=== PATIENT | female | born 1975 | race Caucasian/White ===

== ENCOUNTER 2016-05-18 12:09 | Emergency (ER) | payer MEDICAID ==
[2016-05-18 12:15] VITALS: BP 124/75
--- NOTE | 2016-05-18 12:30 | EDM.PDOC ---
ED HPI GENERAL MEDICAL PROBLEM - General Chief Complaint: Back Pain or Injury Stated Complaint: BACK PAIN Time Seen by Provider: 05/18/16 12:11 - History of Present Illness INITIAL COMMENTS - FREE TEXT/NARRATIVE: HISTORY AND PHYSICAL: History of present illness: The patient is a 40-year-old female who presents with complaints of lower back pain that has been ongoing for the last 3 days. She describes it as a warm deep aching sensation that is bilateral and does not radiate to her buttock or legs. She's had no bowel or bladder disturbances and has had no recent trauma or falls. Patient states she has had UTIs before and this pain is somewhat different but she's concerned about that as well. She has no kidney stone history in that no fevers chills dysuria frequency or urgency and no hematuria. She has no flank pain or abdominal pain. She says the lower back pain does radiate around to her anterior groin area but not down her legs. Patient follows at [facility] and was unable to get an appointment so she came here. She has tried Percocet at home and one other narcotic that she had left over from her surgery she said it was not helping. Patient has a history of a tubal ligation The patient states the pain in his lower back area does not shoot down her legs or to the groin area and she has no neurosensory changes or weakness in her legs Review of systems: As per history of present illness and below otherwise all systems reviewed and negative. Past medical history: As per history of present illness and as reviewed below otherwise noncontributory. Surgical history: As per history of present illness and as reviewed below otherwise noncontributory. Social history: No reported history of drug or alcohol abuse. Family history: As per history of present illness and as reviewed below otherwise noncontributory. Physical exam: General: Well-developed overweight female who is nontoxic and sitting with her legs pulled up and leaning sideways without any discomfort in the ED. She ambulated in and move around without any discomfort. HEENT: Atraumatic, normocephalic, , negative for conjunctival pallor or scleral icterus, mucous membranes moist, throat clear, neck supple, nontender, trachea midline. Lungs: Clear to auscultation, breath sounds equal bilaterally, chest nontender. Heart: S1S2, regular rate and rhythm no overt murmur. Abdomen: Soft, nondistended, nontender. NABS Negative for costovertebral tenderness. Pelvis: Stable nontender. Genitourinary: Deferred. Rectal: Deferred. Extremities: Atraumatic, negative for cords or calf pain. Neurovascular unremarkable. Neuro: Awake, alert, oriented. Cranial nerves II through XII unremarkable. Cerebellum unremarkable. Motor and sensory unremarkable throughout. Exam nonfocal. Patellar reflexes are +2/4 bilaterally, dorsiflexion plantar flexion are intact bilaterally 5/5 inclusive of the great toe. Inversion and eversion of the feet are intact bilaterally. Gait was normal Back: There are no midline step-offs tenderness defects of the thoracic or lumbar spine and no discrete SI joint tenderness or posterior pelvis tenderness. There is soft tissue tenderness at palpation bilaterally at the lower lumbar area but there is no discomfort at palpation of the buttocks. Diagnostics: UA Therapeutics: Precious I did discuss with patient that the pain persists she may need to have further imaging that we can perform here with x-rays would not be useful have a very low he'll that she has not had any recent trauma. Advise we are treating with anti-inflammatories and muscle relaxers and she would need followup with her provider at [facility] I did discuss with the patient the cold blood that was in the urine but that there is no signs of UTI. I offered the patient kidney stone workup but as her pain is bilateral she would like to defer try muscle relaxers and followup with her provider at [facility] for repeat UA and if that is positive to pursue it. Impression: Lower back pain Definitive disposition and diagnosis as appropriate pending reevaluation and review of above. Bilateral Lower Back Pain Score (Numeric/FACES): 7 - Related Data Allergies Allergy/AdvReac Type Severity Reaction Status Date / Time morphine Allergy Headache Verified 05/18/16 12:12 Sulfa (Sulfonamide Allergy Itching Verified 05/18/16 12:12 Antibiotics) Home Meds: Home Meds Fluticasone/Vilanterol [Breo Ellipta 200-25 Mcg INH] 1 inhalation INH DAILY [History] Modafinil [Provigil] 200 mg PO DAILY 09/13/15 [History] Albuterol [Ventolin HFA] 1 - 2 puff INH ASDIRECTED PRN 03/12/16 [History] Cholecalciferol (Vitamin D3) [Vitamin D3] 1 cap PO ASDIRECTED 03/12/16 [History] Lansoprazole/Amoxiciln/Clarith [Wznqtnanbrz-Iiylvrgz-Dcggpzrdj] 1 each PO ASDIRECTED #1 combo..pkg 03/20/16 [Rx] oxyCODONE HCl/Acetaminophen [Percocet 5-325 mg Tablet] 2 each PO Q4H PRN #60 tablet 03/20/16 [Rx] Past Medical History HEENT History: Reports: Sinusitis Cardiovascular History: Reports: None Respiratory History: Reports: Asthma, Other (see below) Other Respiratory History: Hx of PNEUMONIA, BRONCHITIS Gastrointestinal History: Reports: Cholelithiasis Genitourinary History: Reports: None 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 History: Reports: Musculoskeletal History: Reports: None Neurological History: Reports: None Psychiatric History: Reports: Anxiety, Depression Endocrine/Metabolic History: Reports: Obesity/BMI 30+ Hematologic History: Reports: None Dermatologic History: Reports: None - Infectious Disease History Infectious Disease History: Reports: Chicken pox - Past Surgical History Head Surgeries/Procedures: Reports: None HEENT Surgical History: Reports: Adenoidectomy, Tonsillectomy GI Surgical History: Reports: Appendectomy, Cholecystectomy Female Surgical History: Reports: Endometrial ablation, Tubal ligation Other Female Surgeries/Procedures: hx bladder surgery for stress incontinence Social & Family History - Family History Family Medical History: Noncontributory - Tobacco Use Smoking Status *Q: Never Smoker Second Hand Smoke Exposure: No - Caffeine Use Caffeine Use: Reports: None - Alcohol Use Days Per Week of Alcohol Use: 0 - Recreational Drug Use Recreational Drug Use: No ED ROS GENERAL - Review of Systems Review Of Systems: ROS reveals no pertinent complaints other than HPI. ED EXAM, GENERAL - Physical Exam Exam: See Below (See dictation) Course - Vital Signs Last Recorded V/S: Last Vital Signs Temp 36.6 C 05/18/16 12:12 Pulse 101 H 05/18/16 12:12 Resp 16 05/18/16 12:12 BP 124/75 05/18/16 12:12 Pulse Ox 99 05/18/16 12:12 - Orders/Labs/Meds Labs: Laboratory Tests 05/18/16 Range/Units 12:20 Urine Color YELLOW Urine Appearance CLEAR Urine pH 6.0 (5.0-8.0) Ur Specific [place] >= 1.030 (1.001-1.035) Urine Protein NEGATIVE (NEGATIVE) mg/dL Urine Glucose (UA) NEGATIVE (NEGATIVE) mg/dL Urine Ketones NEGATIVE (NEGATIVE) mg/dL Urine Occult Blood LARGE H (NEGATIVE) Urine Nitrite NEGATIVE (NEGATIVE) Urine Bilirubin NEGATIVE (NEGATIVE) Urine Urobilinogen 0.2 (<2.0) EU/dL Ur Leukocyte Esterase NEGATIVE (NEGATIVE) Urine RBC 1-2 (0-2/HPF) Urine WBC 0-2 (0-5/HPF) Ur Epithelial Cells FEW (NONE-FEW) Urine Bacteria FEW (NEGATIVE) Urine Mucus LIGHT (NONE-MOD) Meds: Medications Discontinued Medications Generic Name Dose Route Start Last Admin Trade Name Freq PRN Reason Stop Dose Admin Orphenadrine Citrate 60 mg 05/18/16 12:29 05/18/16 12:35 Norflex IM 05/18/16 12:30 60 mg ONETIME ONE Administration Departure - Departure Time of Disposition: 12:55 Disposition: Home, Self-Care 01 Condition: good Clinical Impression: Lower back pain Qualifiers: Chronicity: acute Back pain laterality: bilateral Sciatica presence: without sciatica Qualified Code(s): M54.5 - Low back pain Forms: ED Department Discharge Additional Instructions: The following information is given to patients seen in the emergency department who are being discharged to home. This information is to outline your options for follow-up care. We provide all patients seen in our emergency department with a follow-up referral. The need for follow-up, as well as the timing and circumstances, are variable depending upon the specifics of your emergency department visit. If you don't have a primary care physician on staff, we will provide you with a referral. We always advise you to contact your personal physician following an emergency department visit to inform them of the circumstance of the visit and for follow-up with them and/or the need for any referrals to a consulting specialist. The emergency department will also refer you to a specialist when appropriate. This referral assures that you have the opportunity for followup care with a specialist. All of these measure are taken in an effort to provide you with optimal care, which includes your followup. Under all circumstances we always encourage you to contact your private physician who remains a resource for coordinating your care. When calling for followup care, please make the office aware that this follow-up is from your recent emergency room visit. If for any reason you are refused follow-up, please contact the [facility] emergency department at and ask to speak to the emergency department charge nurse. [address] [place] [address] Please call and followup with your provider at [facility] and return to the ER as needed and as discussed. Apply ice or heat to the area for symptomatic relief and take medications as prescribed and needed.
== END 2016-05-18 13:08 | disposition home or self-care (01) ==
LOC: MW.ED 12:09
DX: M54.5 Low back pain (principal); J45.909 Unspecified asthma, uncomplicated; Z79.899 Other long term (current) drug therapy; Z90.49 Acquired absence of other specified parts of digestive tract; Z88.2 Allergy status to sulfonamides
CPT/HCPCS: 81001; 96372; 99283; J2360

== ENCOUNTER 2017-12-05 14:47 | Emergency (ER) | payer SELFPAY ==
[2017-12-05 15:00] VITALS: BP 132/80
--- NOTE | 2017-12-05 15:08 | EDM.PDOC ---
ED HPI GENERAL MEDICAL PROBLEM - General Chief Complaint: Respiratory Problem Stated Complaint: COLD Time Seen by Provider: 12/05/17 15:08 Source of Information: Reports: Patient History Limitations: Reports: No Limitations - History of Present Illness INITIAL COMMENTS - FREE TEXT/NARRATIVE: HISTORY AND PHYSICAL: History of present illness: Patient is a 41-year-old female her with complaint of headache and sinus pressure. She states she has had nasal congestion and not feeling well for the past week. She reports worsening pain in her sinuses today prompting her to come to the ED. She denies any fevers, chills, nausea, vomiting, abdominal pain. She states she feels like it's hard to breath but believes it is due to her nose being plugged. She denies any chest pain, shortness of breath, wheezing. Review of systems: As per history of present illness and below otherwise all systems reviewed and negative. Past medical history: As per history of present illness and as reviewed below otherwise noncontributory. Surgical history: As per history of present illness and as reviewed below otherwise noncontributory. Social history: No reported history of drug or alcohol abuse. Family history: As per history of present illness and as reviewed below otherwise noncontributory. Physical exam: General: Patient sitting comfortably in no acute distress and nontoxic appearing HEENT: Tender to palpation of maxillary and frontal sinuses. Atraumatic, normocephalic, pupils reactive, negative for conjunctival pallor or scleral icterus, mucous membranes moist, throat clear, neck supple, nontender, trachea midline. No meningeal signs. Lungs: Clear to auscultation, breath sounds equal bilaterally, chest nontender. Heart: S1S2, regular, negative for clicks, rubs, or overt murmur. Abdomen: Soft, nondistended, nontender. Negative for masses or hepatosplenomegaly. Negative for costovertebral tenderness. Pelvis: Stable nontender. Genitourinary: Deferred. Rectal: Deferred. Extremities: Atraumatic, negative for cords or calf pain. Neurovascular unremarkable. Neuro: Awake, alert, oriented. Cranial nerves II through XII unremarkable. Cerebellum unremarkable. Motor and sensory unremarkable throughout. Exam nonfocal. Notes: Diagnostics: None Therapeutics: None Prescriptions: Augmentin Impression: Acute sinusitis Plan: 1. Take antibiotic as directed. 2. Follow up with primary care provider 3. Return to ED as needed as discussed Definitive disposition and diagnosis as appropriate pending reevaluation and review of above. headache Pain Score (Numeric/FACES): 6 - Related Data Allergies Allergy/AdvReac Type Severity Reaction Status Date / Time morphine Allergy Headache Verified 12/05/17 14:56 Sulfa (Sulfonamide Allergy Itching Verified 12/05/17 14:56 Antibiotics) Home Meds: Home Meds Fluticasone/Vilanterol [Breo Ellipta 200-25 Mcg INH] 1 inhalation INH DAILY [History] Modafinil [Provigil] 200 mg PO DAILY 09/13/15 [History] Albuterol [Ventolin HFA] 1 - 2 puff INH ASDIRECTED PRN 03/12/16 [History] Amoxicillin/Potassium Clav [Augmentin 875-125 Tablet] 1 each PO BID 7 Days #14 tablet 12/05/17 [Rx] Past Medical History HEENT History: Reports: Sinusitis Cardiovascular History: Reports: None Respiratory History: Reports: Asthma, Other (See Below) Other Respiratory History: Hx of PNEUMONIA, BRONCHITIS Gastrointestinal History: Reports: Cholelithiasis Genitourinary History: Reports: Other (See Below) Other Genitourinary History: bladder sling PROVIDER RELATIONS CONSULTANT History: Reports: Musculoskeletal History: Reports: None Neurological History: Reports: None Psychiatric History: Reports: Anxiety, Depression Endocrine/Metabolic History: Reports: Obesity/BMI 30+ Hematologic History: Reports: None Dermatologic History: Reports: None - Infectious Disease History Infectious Disease History: Reports: Chicken Pox - Past Surgical History Head Surgeries/Procedures: Reports: None HEENT Surgical History: Reports: Adenoidectomy, Tonsillectomy GI Surgical History: Reports: Appendectomy, Cholecystectomy Female Surgical History: Reports: Endometrial Ablation, Tubal Ligation Social & Family History - Family History Family Medical History: Noncontributory - Tobacco Use Smoking Status *Q: Never Smoker Second Hand Smoke Exposure: No - Caffeine Use Caffeine Use: Reports: None - Recreational Drug Use Recreational Drug Use: No ED ROS GENERAL - Review of Systems Review Of Systems: ROS reveals no pertinent complaints other than HPI. ED EXAM, GENERAL - Physical Exam Exam: See Below (see dictation) Course - Vital Signs Last Recorded V/S: Last Vital Signs Temp 36.7 C 12/05/17 14:58 Pulse 104 H 12/05/17 14:58 Resp 18 12/05/17 14:58 BP 132/80 12/05/17 14:58 Pulse Ox 97 12/05/17 14:58 Departure - Departure Time of Disposition: 15:15 Disposition: Home, Self-Care 01 Condition: Good Clinical Impression: Acute sinusitis - Discharge Information Prescriptions: Amoxicillin/Potassium Clav [Augmentin 875-125 Tablet] 1 each PO BID 7 Days #14 tablet Referrals: PCP,None [Primary Care Provider] - Forms: ED Department Discharge Additional Instructions: The following information is given to patients seen in the emergency department who are being discharged to home. This information is to outline your options for follow-up care. We provide all patients seen in our emergency department with a follow-up referral. The need for follow-up, as well as the timing and circumstances, are variable depending upon the specifics of your emergency department visit. If you don't have a primary care physician on staff, we will provide you with a referral. We always advise you to contact your personal physician following an emergency department visit to inform them of the circumstance of the visit and for follow-up with them and/or the need for any referrals to a consulting specialist. The emergency department will also refer you to a specialist when appropriate. This referral assures that you have the opportunity for follow-up care with a specialist. All of these measure are taken in an effort to provide you with optimal care, which includes your follow-up. Under all circumstances we always encourage you to contact your private physician who remains a resource for coordinating your care. When calling for follow-up care, please make the office aware that this follow-up is from your recent emergency room visit. If for any reason you are refused follow-up, please contact the [facility] Emergency Department at and asked to speak to the emergency department charge nurse. [address] [address] 1. Take antibiotic as directed. 2. Follow up with primary care provider 3. Return to ED as needed as discussed
== END 2017-12-05 18:54 | disposition home or self-care (01) ==
LOC: MW.ED 14:47
DX: J01.90 Acute sinusitis, unspecified (principal); Z79.899 Other long term (current) drug therapy; Z88.5 Allergy status to narcotic agent; Z88.2 Allergy status to sulfonamides
CPT/HCPCS: 99282; 99283

== ENCOUNTER 2020-10-10 09:58 | Day surgery (SDC) | payer MEDICAID ==
[~2020-10-10 09:58] MED LIST: Lactated Ringers 1,000 ML IV SCH; Sodium Chloride 0.9% 10 ML SDV IV PRN; Sodium Chloride 0.9% 10 ML Syringe FLUSH PRN; Sodium Chloride 0.9% 2.5 ML Syringe FLUSH PRN
--- NOTE | 2020-10-10 11:27 | PCM.PREANE ---
Preanesthetic Assessment - Procedure Proposed Procedure: Colonoscopy, Anal fistula I&D, poss fistulotomy - Anesthesia/Transfusion/Family Hx Anesthesia History: Prior Anesthesia Without Reaction Other Type of Anesthesia Reaction Comment: states it took her a long time to wake up after oral surgery Transfusion History: No Prior Transfusion(s) - Review of Systems General: No Symptoms Pulmonary: No Symptoms (Asthma, used MDI this am, lungs clear) Cardiovascular: No Symptoms (HLD) Gastrointestinal: No Symptoms Neurological: No Symptoms (febrile sz as a child, no prob since) Other: Reports: None - Physical Assessment NPO Status Date: 10/08/20 NPO Status Time: 22:00 Vital Signs: Last Vital Signs Temp 97.3 F 10/10/20 11:18 Pulse 89 10/10/20 11:18 Resp 16 10/10/20 11:18 BP 144/70 H 10/10/20 11:18 Pulse Ox 97 10/10/20 11:18 Height: 5 ft Weight: 99.79 kg (Morbid Obesity) ASA Class: 3 Airway Class: Mallampati = 2 Dentition: Reports: Normal Dentition Thyro-Mental Finger Breadths: 3 Mouth Opening Finger Breadths: 3 ROM/Head Extension: Full Lungs: Clear to Auscultation, Normal Respiratory Effort Cardiovascular: Regular Rate, Regular Rhythm - Lab Values: Laboratory Last Values Urine HCG, Qual NEGATIVE (NEGATIVE) 10/10/20 09:50 SARS-CoV-2 RNA (ZAHIDA) NEGATIVE (NEGATIVE) 10/10/20 09:50 - Allergies Allergies/Adverse Reactions: Allergies Allergy/AdvReac Type Severity Reaction Status Date / Time morphine Allergy Headache Verified 10/07/20 12:27 Sulfa (Sulfonamide Allergy Itching Verified 10/07/20 12:27 Antibiotics) bactrim Allergy Rash Uncoded 10/10/20 11:14 smoke Allergy Shortness Uncoded 10/08/20 09:52 of Breath - Anesthesia Plan Free Text/Narrative:: Plan saddle block (Spinal) and sedation - Acknowledgements Anesthesia Type Planned: Spinal, MAC Pt an Appropriate Candidate for the Planned Anesthesia: Yes Alternatives and Risks of Anesthesia Discussed w Pt/Guardian: Yes Pt/Guardian Understands and Agrees with Anesthesia Plan: Yes PreAnesthesia Questionnaire HEENT History: Reports: None Cardiovascular History: Reports: High Cholesterol Respiratory History: Reports: Asthma Other Respiratory History: Hx of PNEUMONIA, BRONCHITIS Gastrointestinal History: Reports: Irritable Bowel Syndrome Genitourinary History: Reports: None ORDNANCE ARTIFICER History: Reports: , Spontaneous Musculoskeletal History: Reports: Other (See Below) Other Musculoskeletal History: intermittent back pain Neurological History: Reports: None Psychiatric History: Reports: Anxiety, Depression, PTSD Endocrine/Metabolic History: Reports: Obesity/BMI 30+ Hematologic History: Reports: None Immunologic History: Reports: None Oncologic (Cancer) History: Reports: None Dermatologic History: Reports: None - Infectious Disease History Infectious Disease History: Reports: Chicken Pox - Past Surgical History Head Surgeries/Procedures: Reports: None HEENT Surgical History: Reports: Adenoidectomy, Naso-Sinus Surgery, Oral Surgery, Tonsillectomy Cardiovascular Surgical History: Reports: None Respiratory Surgical History: Reports: None GI Surgical History: Reports: Appendectomy, Cholecystectomy Female Surgical History: Reports: D&C, Endometrial Ablation, Tubal Ligation, Other (See Below) Other Female Surgeries/Procedures: endometrial ablation x2 Endocrine Surgical History: Reports: None Neurological Surgical History: Reports: None Musculoskeletal Surgical History: Reports: None Oncologic Surgical History: Reports: None Dermatological Surgical History: Reports: None - SUBSTANCE USE Tobacco Use Status *Q: Never Tobacco User - HOME MEDS Home Medications: Home Meds Fluticasone/Vilanterol [Breo Ellipta 200-25 MCG Inhalation Kit] 1 inhalation INH DAILY 09/13/15 [History] Modafinil [Provigil] 200 mg PO DAILY 09/13/15 [History] Albuterol [Ventolin HFA] 1 - 2 puff INH ASDIRECTED PRN 03/12/16 [History] Escitalopram Oxalate [Lexapro] 10 mg PO DAILY 03/24/20 [History] Rosuvastatin [Crestor] 10 mg PO DAILY 10/08/20 [History] - CURRENT (IN HOUSE) MEDS Current Meds: Current Medications Lactated Ringer's (Ringers, Lactated) 1,000 mls @ 125 mls/hr IV ASDIRECTED PAULA Last Admin: 10/10/20 11:17 Dose: 125 mls/hr Documented by: Sodium Chloride (Sodium Chloride 0.9% 10 Ml Syringe) 10 ml FLUSH ASDIRECTED PRN PRN Reason: Keep Vein Open Sodium Chloride (Sodium Chloride 0.9% 2.5 Ml Syringe) 2.5 ml FLUSH ASDIRECTED PRN PRN Reason: Keep Vein Open Sodium Chloride (Sodium Chloride 0.9% 10 Ml Syringe) 10 ml FLUSH ASDIRECTED PRN PRN Reason: Keep Vein Open Sodium Chloride (Sodium Chloride 0.9% 2.5 Ml Syringe) 2.5 ml FLUSH ASDIRECTED PRN PRN Reason: Keep Vein Open Sodium Chloride (Sodium Chloride 0.9% 10 Ml Sdv) 10 ml IV ASDIRECTED PRN PRN Reason: IV Use
[2020-10-10] MEDS ORDERED: Propofol 200 MG/20 ML SDV ONE ×3 (11:30→14:57)
[2020-10-10] MEDS ORDERED: Midazolam 1 MG/ML 2 ML SDV ONE (11:31)
[2020-10-10] MEDS ORDERED: fentaNYL 100 MCG/2 ML SDV ONE (11:31)
[2020-10-10] MEDS ORDERED: Bupivacaine 0.5% 30 ML SDV ONE (12:31)
[2020-10-10] MEDS ORDERED: cefOXitin 1 GM Vial ONE (12:57)
--- NOTE | 2020-10-10 13:08 | PCM.POSTAN ---
POST ANESTHESIA ASSESSMENT - MENTAL STATUS Mental Status: Somnolent - VITAL SIGNS Vital Signs: Last Vital Signs Temp 97.3 F 10/10/20 11:18 Pulse 89 10/10/20 11:18 Resp 16 10/10/20 11:18 BP 144/70 H 10/10/20 11:18 Pulse Ox 97 10/10/20 11:18 - RESPIRATORY Respiratory Status: Respiratory Rate WNL, Airway Patent, O2 Saturation Stable - CARDIOVASCULAR CV Status: Pulse Rate WNL - GASTROINTESTINAL GI Status: No Symptoms - PAIN Free Text/Narrative:: Resting comfortably - POST OP HYDRATION Hydration Status: Adequate & Stable
--- NOTE | 2020-10-10 13:10 | PCM48HPAN ---
Post Anesthesia Note - EVALUATION WITHIN 48HRS OF ANESTHETIC Vital Signs in Normal Range: Yes Patient Participated in Evaluation: Yes Respiratory Function Stable: Yes Airway Patent: Yes Cardiovascular Function Stable: Yes Hydration Status Stable: Yes Pain Control Satisfactory: Yes Nausea and Vomiting Control Satisfactory: Yes Mental Status Recovered: Yes Vital Signs: Last Vital Signs Temp 97.3 F 10/10/20 11:18 Pulse 89 10/10/20 11:18 Resp 16 10/10/20 11:18 BP 144/70 H 10/10/20 11:18 Pulse Ox 97 10/10/20 11:18 - COMMENTS/OBSERVATIONS Free Text/Narrative:: Pt doing well post-op. VSS. No apparent anesthetic complications. Dr. Cesar Kang
--- NOTE | 2020-10-10 13:18 | PCM.OPNOTE ---
- General Post-Op/Procedure Note Date of Surgery/Procedure: 10/10/20 Operative Procedure(s): Screening colonoscopy, incision and drainage perianal abscess, seton placement for anterior perianal fistula Findings: Anterior perianal fistula extending to a right anterior perianal abscess measuring 3 x 1 x 1 cm Pre Op Diagnosis: Perianal abscess, Screening colonoscopy Post-Op Diagnosis: Diverticulosis, perianal abscess and perianal fistula Anesthesia Technique: MAC Primary Surgeon: Lynette Barksdale Fluid Replacement, Intraop: 1,000 EBL in mLs: 3 Condition: Good
[2020-10-10 13:53] VITALS: BP 129/60; PULSE 69
[2020-10-10] MEDS ORDERED: fentaNYL 250 MCG/5 ML SDV ONE (14:57)
--- NOTE | 2020-10-10 19:36 | OR ---
SURGEON: LYNETTE BARKSDALE MD DATE OF PROCEDURE: 10/10/2020 PREOPERATIVE DIAGNOSES: Screening colonoscopy, perianal abscess. POSTOPERATIVE DIAGNOSES: Diverticulosis, perianal abscess, perianal fistula, grade 3 hemorrhoid. PROCEDURES PERFORMED: 1. Screening colonoscopy. 2. Incision and drainage, right perianal abscess. 3. Seton placement for anterior perianal fistula. PRIMARY SURGEON: Lynette Barksdale MD ANESTHESIA: Spinal, MAC, local. FLUIDS: 1000 mL crystalloid. ESTIMATED BLOOD LOSS: 3 mL. INSTRUMENT USED: Olympus colonoscope. EXTENT OF EXAMINATION: To the cecum. PREPARATION: Good. LIMITATIONS: None. COMPLICATIONS: None. INDICATIONS: The patient is a 44-year-old female, who presented to my clinic with a questionable perianal abscess. She states for the past several months, she has felt a fullness and tenderness along the anterior right aspect of her buttocks. She feels like there is something extending towards her anus. Recently, she developed an abscess in the area, which drained. She remains tender. She saw her primary care provider, who started her on antibiotics. When she saw me in clinic, the patient had an area of healing on her right anterior buttocks, but there was some thickened edema extending down to the anus. She has never had a colonoscopy and is due for one as well. We discussed performing a screening colonoscopy as well as an exam under anesthesia with possible incision and drainage of a perianal abscess and examination for a possible perianal fistula. I explained the need for either a fistulotomy or seton placement should I find a fistula. I explained the procedures, expected perioperative course, and risks. She verbalized understanding and wishes to proceed. PROCEDURE IN DETAIL: The patient was brought in the OR and placed on the OR cart in a left lateral decubitus position. A time-out was completed, verifying the patient's name, age, date of , allergies, and procedure to be performed. A spinal block was performed on the patient, and monitored anesthesia care was induced. Continuous oxygen was provided via face mask throughout the procedure. After adequate sedation was achieved, a digital rectal exam was performed. I could feel some fullness anteriorly along the anal canal. The patient also had a right posterior hemorrhoidal column that was enlarged. A well-lubricated colonoscope was inserted in the rectum and advanced under direct visualization to the level of the cecum. The cecum was identified by both visual and anatomic landmarks. A photograph was taken of the cecal cap; however, I was unable to retroflex the scope within the cecum due to looping of the scope more proximally. The scope was then straightened out and fully withdrawn while examining the color, texture, anatomy, and integrity of mucosa from the cecum to the anal canal. The patient was found to have diverticulosis throughout the sigmoid colon. The scope was then brought to the rectum and retroflexed to allow visualization of the anal canal opening. This appeared normal, and a photograph was taken. The scope was then straightened out and fully withdrawn. The cecum to anus time was 7 minutes. The patient tolerated this portion of the procedure well. The buttocks were then taped and prepped in standard fashion. A bivalve proctoscope was inserted in the rectum. I closely inspected the anterior anal mucosa. I could see some purulent-appearing material coming from what appeared to be a perianal fistula. I removed the bivalve proctoscope and turned my attention to the right anterior buttock. Over the scarred area, I could still feel an area of fluctuance. I attempted to aspirate this with a 21- gauge needle, but no fluid was pulled back. Given the area of fluctuance, I made the decision to incise over the top of this area. An 11 blade was used to make a 1 cm opening over the top of this area of fluctuance. Deep to the area was a larger abscess cavity. The cavity did not contain any pus, however, as it likely had drained and was partially resolving from last week. The abscess cavity measured 3 cm in size. I then irrigated out the abscess cavity. A fistula probe was used to palpate medially along the abscess cavity, and I found a track connecting from the abscess cavity to the anterior midline anal canal. This was consistent with a perianal fistula. A 3-0 silk tie was then brought through the fistulous tract. A seton was then looped through this area and tied to itself using interrupted 3-0 silk sutures. The sutured area of the seton was then rotated into the soft tissues. I then packed the abscess cavity with quarter-inch packing strip. The area was then anesthetized with 0.5% Marcaine plain. 4 x 4 gauze and mesh underwear were applied. The patient tolerated the procedure well. All counts were complete and correct at the end of the case. She was awoken and taken to the PACU in stable condition. LUCIO / SANDRITA /[id number]
== END 2020-10-10 15:30 | disposition home or self-care (01) ==
LOC: MW.SDS 09:58
PROVIDERS: ATTEND Surgery
DX: Z12.11 Encounter for screening for malignant neoplasm of colon (principal); K60.3 Anal fistula; Z01.812 Encounter for preprocedural laboratory examination; Z20.822 Contact with and (suspected) exposure to COVID-19; K57.30 Diverticulosis of large intestine without perforation or abscess without bleeding; K64.2 Third degree hemorrhoids; J45.909 Unspecified asthma, uncomplicated; E66.01 Morbid (severe) obesity due to excess calories; Z79.899 Other long term (current) drug therapy; Z88.6 Allergy status to analgesic agent; Z68.41 Body mass index [BMI] 40.0-44.9, adult
CPT/HCPCS: 45378; 46020; 46050; 81025; 87635; J0694; J2250; J2370; J2704; J3010; J3490; J7120; 00812; U0002

== ENCOUNTER 2021-01-20 17:57 | Emergency (ER) | payer MEDICAID ==
[2021-01-20 19:16] VITALS: BP 123/54; PULSE 73
[2021-01-20] MEDS ORDERED: Ketorolac 15 MG/ML SDV IM STA (20:03)
--- NOTE | 2021-01-20 20:26 | EDM.PDOC ---
ED HPI GENERAL MEDICAL PROBLEM - General Chief Complaint: General Stated Complaint: SURGERY COMPLICATIONS Time Seen by Provider: 01/20/21 20:21 - History of Present Illness INITIAL COMMENTS - FREE TEXT/NARRATIVE: HISTORY AND PHYSICAL: History of present illness: This is a 45-year-old female who presents ER today secondary to rectal pain at the area of her recent surgical procedure. Patient reports that she was treated in [facility] by Dr. Arredondo on Wednesday for a rectal fistula with a seton drain in place. Patient reports that she was doing well up until today when she started experiencing a significant mount of pain and discomfort to the incision site. Patient reports that she has been at work and has been doing well. She reports she is been moving her bowels without difficulty. Patient denies any loss of bowel or bladder incontinence. Patient denies any recent fevers, shakes, chills, nausea, vomiting, diarrhea. Patient reports a small amount of bloody discharge when she cleans herself after moving her bowels. Patient reports that she thinks that she might of overdone it at work and today was having significant mount of pain at the incision site. Patient denies any purulent drainage or odor. Patient denies any recent fevers, shakes, chills, nausea, vomiting, diarrhea, dysuria, frequency, urgency. Patient reports that she took half of a Bridgeton tablet half an hour prior to arrival to the ED with some improvement in her pain. Review of systems: As per history of present illness and below otherwise all systems reviewed and negative. Past medical history: As per history of present illness and as reviewed below otherwise noncontributory. Surgical history: As per history of present illness and as reviewed below otherwise noncontributory. Social history: No reported history of drug abuse. Family history: As per history of present illness and as reviewed below otherwise noncontributory. Physical exam: This patient was seen and evaluated during the 2019 SARS-CoV-2 novel coronavirus pandemic period. Community viral transmission is ongoing at time of this encounter and the emergency department is operating under pandemic response procedures. Constitutional: Patient is oriented to person, place, and time. Appears well- developed and well-nourished. No distress. HEENT: Moist mucous membranes Head: Normocephalic and atraumatic Eyes: Right eye exhibits no discharge. Left eye exhibits no discharge. No scleral icterus Neck: Normal range of motion. No tracheal deviation present. Cardiovascular: Normal rate and regular rhythm. Pulmonary: Effort normal, no respiratory distress. Abdominal: No distention Musculoskeletal: Normal range of motion Neurologic: Alert and oriented to person, place and time. Skin: [place], warm and dry. Psychiatric: Normal mood and affect. Behavior is normal. Judgment and thought content normal. Nursing note and vital signs have been reviewed Patient's ER physical exam is significant for a seton drain in place in her perirectal region at the site of the incision. The area is clean and dry without any purulent drainage, bleeding, odor. Patient has no fluctuance, erythema, edema identified. Seton drain is appropriately in place. Diagnostics: [] Therapeutics: Attempted to consult Dr. Arredondo in [facility] however he is currently not onsite health coach. Attempt to consult Dr. Douglas here [place] however today she is not on-call. Assessment and plan: 45-year-old female who presents ER today secondary to rectal pain at the site of her surgical incision. Area appears to be clean and dry without any evidence of infection or active bleeding. No area of drainage or fluctuance identified. Given the recent surgical procedure and increased pain I will start her on Augmentin. Patient has been given a dose of Toradol here in the ED and will be encouraged to continue taking ibuprofen at home along with her Bridgeton. Patient is to call Dr. Arredondo in the morning for further recommendations and possibly increasing her appointment to sooner. Reassessment at the time of disposition demonstrates that the patient is in no acute distress. The patient has remained stable throughout the entire ED visit and is without objective evidence for acute process requiring urgent intervention or hospitalization. The patient is stable for discharge, counseling is provided as documented above, discussed symptomatic treatment and specific conditions for return. I have spoken with the patient/caregiver and discussed todays findings, in addition to providing specific details for the plan of care. Questions are answered and there is agreement with the plan. Definitive disposition and diagnosis as appropriate pending reevaluation and review of above. Anus Pain Score (Numeric/FACES): 9 - Related Data Allergies Allergy/AdvReac Type Severity Reaction Status Date / Time morphine Allergy Headache Verified 01/20/21 19:12 Sulfa (Sulfonamide Allergy Itching Verified 01/20/21 19:12 Antibiotics) bactrim Allergy Rash Uncoded 01/20/21 19:12 smoke Allergy Shortness Uncoded 01/20/21 19:12 of Breath Home Meds: Home Meds Fluticasone/Vilanterol [Breo Ellipta 200-25 MCG Inhalation Kit] 1 inhalation INH DAILY 09/13/15 [History] Modafinil [Provigil] 200 mg PO DAILY 09/13/15 [History] Albuterol [Ventolin HFA] 1 - 2 puff INH ASDIRECTED PRN 03/12/16 [History] Escitalopram Oxalate [Lexapro] 10 mg PO DAILY 03/24/20 [History] Rosuvastatin [Crestor] 10 mg PO DAILY 10/08/20 [History] Amoxicillin/Clavulanate K [Augmentin 875-125 MG] 1 tab PO Q12HR 10 Days #20 tab 01/20/21 [Rx] Amoxicillin/Clavulanate K [Augmentin 875-125 MG] 1 tab PO Q12HR 10 Days #20 tab 01/20/21 [Rx] Ibuprofen 600 mg PO Q6HR PRN #30 tablet 01/20/21 [Rx] Ibuprofen 600 mg PO Q6HR PRN #30 tablet 01/20/21 [Rx] Past Medical History HEENT History: Reports: None Cardiovascular History: Reports: High Cholesterol Respiratory History: Reports: Asthma Other Respiratory History: Hx of PNEUMONIA, BRONCHITIS Gastrointestinal History: Reports: Irritable Bowel Syndrome Genitourinary History: Reports: None [employer] History: Reports: , Spontaneous Musculoskeletal History: Reports: Other (See Below) Other Musculoskeletal History: intermittent back pain Neurological History: Reports: None Psychiatric History: Reports: Anxiety, Depression, PTSD Endocrine/Metabolic History: Reports: Obesity/BMI 30+ Hematologic History: Reports: None Immunologic History: Reports: None Oncologic (Cancer) History: Reports: None Dermatologic History: Reports: None - Infectious Disease History Infectious Disease History: Reports: Chicken Pox - Past Surgical History Head Surgeries/Procedures: Reports: None HEENT Surgical History: Reports: Adenoidectomy, Naso-Sinus Surgery, Oral Surgery, Tonsillectomy Cardiovascular Surgical History: Reports: None Respiratory Surgical History: Reports: None GI Surgical History: Reports: Appendectomy, Cholecystectomy Female Surgical History: Reports: D&C, Endometrial Ablation, Tubal Ligation, Other (See Below) Other Female Surgeries/Procedures: endometrial ablation x2 Endocrine Surgical History: Reports: None Neurological Surgical History: Reports: None Musculoskeletal Surgical History: Reports: None Oncologic Surgical History: Reports: None Dermatological Surgical History: Reports: None Social & Family History - Family History Family Medical History: No Pertinent Family History - Tobacco Use Second Hand Smoke Exposure: No - Caffeine Use Caffeine Use: Reports: None - Recreational Drug Use Recreational Drug Use: No ED ROS GENERAL - Review of Systems Review Of Systems: See Below ED EXAM, GENERAL - Physical Exam Exam: See Below Course - Vital Signs Last Recorded V/S: Last Vital Signs Temp 96.8 F L 01/20/21 19:13 Pulse 73 01/20/21 19:13 Resp 20 01/20/21 19:13 BP 123/54 L 01/20/21 19:13 Pulse Ox 99 01/20/21 19:13 - Orders/Labs/Meds Meds: Medications Discontinued Medications Generic Name Dose Route Start Last Admin Trade Name Freq PRN Reason Stop Dose Admin Ketorolac Tromethamine 30 mg 01/20/21 20:03 01/20/21 20:10 Ketorolac 15 Mg/Ml Sdv IM 01/20/21 20:04 30 mg ONETIME STA Administration Departure - Departure Time of Disposition: 20:25 Disposition: Home, Self-Care 01 Condition: Good Clinical Impression: Postoperative pain - Discharge Information Instructions: Pain Relief Before and After Surgery Referrals: John Tirado Jr, PA-C [Primary Care Provider] - Additional Instructions: You were seen and evaluated in ER today secondary to pain at the incision site from your fistula surgery. The area at this time appears to be clean and dry with no evidence of significant infection. Given the amount of pain that you are having, we will start you on Augmentin 875 mg to take twice a day for [address] Harris in the morning for further recommendations. I would recommend that you take ibuprofen 600 mg 4 times a day for the next 2 to 3 days and you can use your Bridgeton for breakthrough pain. The following information is given to patients seen in the emergency department who are being discharged to home. This information is to outline your options for follow-up care. We provide all patients seen in our emergency department with a follow-up referral. The need for follow-up, as well as the timing and circumstances, are variable depending upon the specifics of your emergency department visit. If you don't have a primary care physician on staff, we will provide you with a referral. We always advise you to contact your personal physician following an emergency department visit to inform them of the circumstance of the visit and for follow-up with them and/or the need for any referrals to a consulting specialist. The emergency department will also refer you to a specialist when appropriate. This referral assures that you have the opportunity for follow-up care with a specialist. All of these measure are taken in an effort to provide you with optimal care, which includes your follow-up. Under all circumstances we always encourage you to contact your private physician who remains a resource for coordinating your care. When calling for follow-up care, please make the office aware that this follow-up is from your ecent emergency room visit. If for any reason you are refused follow-up, please contact the [facility] Emergency Department at and asked to speak to the emergency department charge nurse. [facility] [address] [place] [address] [id number] [address] Sepsis Event Note (ED) - Evaluation Sepsis Screening Result: No Definite Risk - Focused Exam Vital Signs: Vital Signs Temp Pulse Resp BP Pulse Ox 01/20/21 19:13 96.8 F L 73 20 123/54 L 99
[2021-01-20] MEDS ORDERED: Amoxicillin/Clavulanate K 875-125 MG Tab PO ONE (20:28)
== END 2021-01-20 20:46 | disposition home or self-care (01) ==
LOC: MW.ED 17:57
DX: G89.18 Other acute postprocedural pain (principal); K62.89 Other specified diseases of anus and rectum; E78.00 Pure hypercholesterolemia, unspecified; E66.9 Obesity, unspecified; Z68.39 Body mass index [BMI] 39.0-39.9, adult; Z88.5 Allergy status to narcotic agent; Z88.2 Allergy status to sulfonamides; Z91.048 Other nonmedicinal substance allergy status; Z79.899 Other long term (current) drug therapy
CPT/HCPCS: 96372; 99283; A9270; J1885

== ENCOUNTER 2023-08-03 18:00 | Emergency (ER) | payer SELFPAY ==
[2023-08-03] MEDS: Sodium Chloride 0.9% 1,000 ML IV ONE (18:25)
[2023-08-03] MEDS: Albuterol/Ipratropium 3.0-0.5 MG/3 ML Neb Soln NEB ONE (18:25)
[2023-08-03 18:37] LABS: BASOPHILS ABSOLUTE AUTO 0.05 K/uL (0.00-0.20); BASOPHILS PERCENT AUTO 0.6 % (0.0-1.0); EOSINOPHILS ABSOLUTE AUTO 0.52 K/uL (0.00-0.45); EOSINOPHILS PERCENT AUTO 5.7 % (0.0-6.0); HEMATOCRIT 40.2 % (37.0-47.0); HEMOGLOBIN 14.2 g/dL (12.0-16.0); IMMATURE GRAN ABSOLUTE AUTO 0.02 K/uL (0.00-0.05); IMMATURE GRAN PERCENT AUTO 0.2 % (0.0-0.4); LYMPHOCYTES ABSOLUTE AUTO 3.44 K/uL (1.00-4.80); MEAN CORPUSCULAR HEMOGLOBIN 30.3 pg (28.0-32.0); MEAN CORPUSCULAR HGB CONC 35.3 g/dL (32.0-36.0); MEAN CORPUSCULAR VOLUME 85.9 fL (83.0-99.0); MEAN PLATELET VOLUME 9.5 fL (9.4-12.3); MONOCYTES ABSOLUTE AUTO 0.89 K/uL (0.00-0.80); MONOCYTES PERCENT AUTO 9.8 % (0.0-8.0); NEUTROPHILS ABSOLUTE AUTO 4.13 K/uL (1.80-7.70); NEUTROPHILS PERCENT AUTO 45.7 % (41.0-71.0); PLATELET COUNT,PLT 200 K/uL (150-400); RED BLOOD CELL COUNT 4.68 M/uL (4.10-5.30); WHITE BLOOD CELL COUNT,WBC 9.05 K/uL (3.9-11.3)
[2023-08-03 19:20] LABS: A/G RATIO 0.8 (0.9-1.6); ALBUMIN 3.3 g/dL (3.4-5.0); BILIRUBIN TOTAL 0.3 mg/dL (0.2-1.0); CALCIUM 8.8 mg/dL (8.5-10.1); EST CRCL DRUG DOSING (CG) 49.42 mL/min; POTASSIUM,K 3.2 mmol/L (3.5-5.1); PROTEIN TOTAL,TP 7.5 g/dL (6.4-8.2)
[2023-08-03] MEDS: Iopamidol 755 MG/ML 500 ML Multipack Bottle IVPUSH ONE (20:16)
[2023-08-03] MEDS: Doxycycline 100 MG Cap PO ONE (21:24)
[2023-08-03] MEDS: Albuterol/Ipratropium 3.0-0.5 MG/3 ML Neb Soln ONE (21:24)
[2023-08-03 21:28] VITALS: BP 149/73; PULSE 96
[2023-08-03 22:05] LABS: CORONAVIRUS COVID-19 NAA NEGATIVE (NEGATIVE); INFLUENZA A NAA NEGATIVE (NEGATIVE); INFLUENZA B NAA NEGATIVE (NEGATIVE); RESPIRATORY SYNCYTIAL VIR NAA NEGATIVE (NEGATIVE)
== END 2023-08-03 21:33 | disposition home or self-care (01) ==
LOC: MW.ED 18:00
DX: J18.9 Pneumonia, unspecified organism (principal); E78.00 Pure hypercholesterolemia, unspecified; Z88.5 Allergy status to narcotic agent; Z88.2 Allergy status to sulfonamides; Z88.1 Allergy status to other antibiotic agents; Z91.048 Other nonmedicinal substance allergy status; Z79.51 Long term (current) use of inhaled steroids; Z79.899 Other long term (current) drug therapy; Z90.49 Acquired absence of other specified parts of digestive tract; Z75.8 Other problems related to medical facilities and other health care
CPT/HCPCS: 0241U; 36415; 71046; 71275; 80053; 83735; 84484; 85025; 85379; 93005; 99285; A9270; J7030; Q9967; 93010; 99284; J7620-GY

== ENCOUNTER 2024-10-07 13:56 | Emergency (ER) | payer MEDICAID ==
[2024-10-07] MEDS: Ketorolac 30 MG/ML SDV IM ONE (14:56)
[2024-10-07 15:03] VITALS: BP 133/65; PULSE 67
== END 2024-10-07 15:46 | disposition home or self-care (01) ==
LOC: MW.ED 13:56
DX: L03.115 Cellulitis of right lower limb (principal); J45.909 Unspecified asthma, uncomplicated; E66.9 Obesity, unspecified; Z90.49 Acquired absence of other specified parts of digestive tract; Z88.5 Allergy status to narcotic agent; Z88.2 Allergy status to sulfonamides; Z88.8 Allergy status to other drugs, medicaments and biological substances; Z91.048 Other nonmedicinal substance allergy status; Z79.899 Other long term (current) drug therapy; Z75.3 Unavailability and inaccessibility of health-care facilities
CPT/HCPCS: 96372; 99283; A9270; J1885